=== PATIENT | female | born 1985 | race Caucasian/White ===

== ENCOUNTER 2017-06-19 12:19 | Emergency (ER) | payer OTHER ==
--- NOTE | 2017-06-19 12:51 | EDM.PDOC ---
ED HPI GENERAL MEDICAL PROBLEM - General Chief Complaint: ENT Problem Stated Complaint: HEAD COLD Time Seen by Provider: 06/19/17 12:35 Source of Information: Reports: Patient History Limitations: Reports: No Limitations - History of Present Illness INITIAL COMMENTS - FREE TEXT/NARRATIVE: Presents with a six-day history of a "head cold" along with cough and more recently laryngitis. 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 She denies fever and only off-and-on mild sore throat, no chest pain, wheezing, shortness of breath or ear fullness. She does have some maxillary sinus fullness along with postnasal drip. Throat Pain Score (Numeric/FACES): 6 - Related Data Allergies Allergy/AdvReac Type Severity Reaction Status Date / Time Sulfa (Sulfonamide Allergy Hives Verified 06/19/17 12:32 Antibiotics) Home Meds: Home Meds Prednisone [IJD: predniSONE] 40 mg PO WITHBREAKFAST #10 tab 06/19/17 [Rx] Past Medical History Respiratory History: Reports: Other (See Below) Other Respiratory History: childhood asthma, grew out of it and has not had as an adult [employer] History: Reports: - Infectious Disease History Infectious Disease History: Reports: Chicken Pox Social & Family History - Family History Family Medical History: Noncontributory - Tobacco Use Smoking Status *Q: Never Smoker - Recreational Drug Use Recreational Drug Use: No ED ROS ENT - Review of Systems Review Of Systems: ROS reveals no pertinent complaints other than HPI. ED EXAM, ENT - Physical Exam Exam: See Below Exam Limited By: No Limitations General Appearance: Alert, No Apparent Distress Ears: Normal External Exam, Normal Canal, Normal TMs Nose: Normal Inspection, Normal Mucousa, No Blood Mouth/Throat: Normal Inspection Head: Atraumatic, Normocephalic, Sinus Tenderness (maxillary mild bilateral to percussion) Neck: Normal Inspection, Supple, Non-Tender, Full Range of Motion. No: Lymphadenopathy (L), Lymphadenopathy (R) Respiratory/Chest: No Respiratory Distress, Lungs Clear, Normal Breath Sounds Cardiovascular: Normal Peripheral Pulses, Regular Rate, Rhythm, No Edema GI/Abdominal: Soft Back: Normal Inspection Extremities: Normal Inspection Neurological: Alert, Oriented Psychiatric: Normal Affect, Normal Mood Skin: Warm, Dry, Intact, Normal Color, No Rash Lymphatic: No Adenopathy Course - Vital Signs Last Recorded V/S: Last Vital Signs Temp 36.7 C 06/19/17 12:29 Pulse 96 06/19/17 12:29 Resp 18 06/19/17 12:29 BP 139/78 06/19/17 12:29 Pulse Ox 99 06/19/17 12:29 Departure - Departure Time of Disposition: 12:49 Disposition: Home, Self-Care 01 Clinical Impression: Sinusitis, Bronchitis - Discharge Information Referrals: PCP,None [Primary Care Provider] - Additional Instructions: 1. Take your prednisone once daily for the next 5 days 2. You may use your cough syrup every 4-6 hours as needed for cough with driving precautions 3. Return to clinic if symptoms worsen or do not improve as expected
[2017-06-19 13:33] VITALS: BP 127/76
== END 2017-06-19 13:15 | disposition home or self-care (01) ==
LOC: MW.ED 12:19
DX: J40 Bronchitis, not specified as acute or chronic (principal); J32.9 Chronic sinusitis, unspecified; Z88.2 Allergy status to sulfonamides
CPT/HCPCS: 99281; 99282